=== PATIENT | female | born 1985 | race Caucasian/White ===

== ENCOUNTER 2016-04-08 09:12 | Outpatient (CLI) | payer OTHER | END 2016-04-08 09:13 | disposition home or self-care (01) | DX: Z36 Encounter for antenatal screening of mother (principal) ==

== ENCOUNTER 2016-06-06 14:20 | Outpatient (CLI) | payer OTHER | END 2016-06-06 14:21 | disposition home or self-care (01) | DX: Z36 Encounter for antenatal screening of mother (principal) ==

== ENCOUNTER 2016-07-06 07:29 | Outpatient (CLI) | payer OTHER | END 2016-07-06 07:30 | disposition home or self-care (01) | DX: Z36 Encounter for antenatal screening of mother (principal) ==

== ENCOUNTER 2016-08-16 09:20 | Outpatient (CLI) | payer OTHER | END 2016-08-16 09:21 | disposition home or self-care (01) | DX: Z36 Encounter for antenatal screening of mother (principal) ==

== ENCOUNTER 2016-09-23 08:00 | Outpatient (CLI) | payer OTHER | END 2016-09-23 08:01 | disposition home or self-care (01) | LOC: LAB.R 08:00 | PROVIDERS: ATTEND Obstetrics & Gynecology | DX: J02.9 Acute pharyngitis, unspecified (principal) | CPT/HCPCS: 87070 ==

== ENCOUNTER 2016-10-20 16:42 | Outpatient (CLI) | payer OTHER | END 2016-10-20 16:43 | disposition home or self-care (01) | LOC: LAB.R 16:42 | PROVIDERS: ATTEND Registered Nurse | DX: Z34.83 Encounter for supervision of other normal pregnancy, third trimester (principal) | CPT/HCPCS: 87081 ==

== ENCOUNTER 2016-10-31 17:17 | Outpatient (CLI) | payer OTHER ==
[2016-10-31 17:41] VITALS: BP 125/77
--- NOTE | 2016-10-31 18:38 | PROVIDER PROGRESS NOTE ---
Labor Progress Note - Uterine Monitoring Uterine Monitoring Mode: positive: External toco Contraction Frequency (min/apart): 2-8 Contraction Intensity: positive: Mild to moderate Uterine Resting Tone: positive: Soft - Monitoring Monitor Mode: positive: External ultrasound Heart Rate Baseline: 135 Heart Rate Variability: positive: Moderate (6-25 bmp) Accelerations: positive: Present, 15x15 Decelerations: positive: None Strip Review: positive: Category I - Labor Progress Note Labor Progress Note/Additional Text: Laverne presented w/ a complaint of decreased movement throughout the day. She also reported profound & constant lower abdominal pain. She was evaluated @ [facility] & her baby had begun moving more vigorously w/ her in the supine position. Her discomfort was also resolved in the supine position. She reported she had been sitting for most of the day at her desk & that the discomfort started around 12N. She is also nervous because she was measuring S< D @ her last visit & has yet to be scheduled for her VIVIANA. Physical exam: AAOx3, NAD WA anxious gravid female HEENT: normocephalic, atraumatic Chest: breathing unlabored Abd: gravid, tender w/ palpation across round and broad ligaments, palpable movement, fetus cephalic; Bedside BAYLEE reveals AFV 13.78cm, + movement, MVP >2cm. NST: BL 135bpm, + accels, no decels, mod variability, reactive & CAT I TOCO: UCs q2-8 min, palp mild to moderate SVE deferred per pt request Skin: clean, dry, intact, no lesion Neuro: no focal deficit Extremities: no edema, FROM t/o, neg River's Psych: anxious, normal affect A: decreased movement w/ reassuring well-being by surveillance: NST reactive, AFV WNL, movement resumed Maternal abdominal pain, improved w/ supine positioning P: 1. Reviewed body mechanics in late & encouraged pt to sit in different positions & to vary sitting/standing/walking more regularly 2. Encouraged warm bath/rest/increased hydration 3. Reviewed warning s/sx, labor s/sx, FKC 4. Will contact radiology to attempt to expedite scheduling of VIVIANA, pt reassured by today's AFV findings 5. Return visit scheduled for 11/03/2016; pt has emergency contact information & will call w/ resumption or worsening of symptoms
== END 2016-10-31 18:30 | disposition home or self-care (01) ==
LOC: WFO 17:17 → FBP 17:18 → WFO 18:30
PROVIDERS: ATTEND Registered Nurse
DX: O36.8130 Decreased fetal movements, third trimester, not applicable or unspecified (principal); Z3A.38 38 weeks gestation of pregnancy
CPT/HCPCS: 59025

== ENCOUNTER 2016-11-03 18:58 | Outpatient (CLI) | payer OTHER ==
--- NOTE | 2016-11-04 00:05 | Ultrasound Preliminary Report ---
Exam: US OB F/U or Repeat IMPRESSION: Unremarkable fetus at 35 weeks 4 days by current measurements, concordant with LMP measur ements, but discordant with first ultrasound measurements. [facility] SITE ID: [id number]
--- NOTE | 2016-11-04 00:07 | Ultrasound Report ---
EXAM: COMPLETE OBSTETRICAL ULTRASOUND EXAM DATE: 11/03/2016 07:34 PM. CLINICAL HISTORY: Small for dates. COMPARISON: 07/06/2016. TECHNIQUE: Real-time sonographic evaluation of the fetus performed by the b2b managed service sales exec. Multiple repre sentative static images were saved for review. DATING: Established EGA 38 weeks 2 days with CHANDRIKA 11/15/2016 based on the first ultrasound. EGA 35 weeks 1 day with CHANDRIKA 12/01/2016 based on LMP. EGA 35 weeks 4 days with CHANDRIKA 12/04/2016 based on the current ultrasound. GENERAL EVALUATION Oliveira . Cardiac activity: 132 bpm. movement: Visualized. Presentation: Cephalic. Placenta: Anterior position. No evidence for previa. Amniotic fluid: BAYLEE 8.9 MVP 4.8 cm. BIOMETRY Bi-Parietal Diameter (BPD): 8.63 cm, 34 weeks 6 days Head Circumference (HC): 32.24 cm, 36 weeks 3 days Abdominal Circumference (AC): 30.71 cm, 34 weeks 5 days Femur Length (FL): 6.99 cm, 35 weeks 6 days Estimated Weight: 2617 gm, 7.6th percentile for 38 weeks 2 days. ANATOMIC SURVEY NOT PERFORMED AT THIS TIME. UNREMARKABLE VISUALIZED ANATOMY. MATERNAL STRUCTURES Uterus: Unremarkable. Cervix: Long and closed. Transabdominal length 3.1 cm. Right ovary/adnexa: Not visualized. Left ovary/adnexa: Not visualized. Free fluid: None. IMPRESSION: Unremarkable fetus at 35 weeks 4 days by current measurements, concordant with LMP measur ements, but discordant with first ultrasound measurements. [facility] Referring Provider Line: [phone] SITE ID: [id number]
== END 2016-11-03 18:59 | disposition home or self-care (01) ==
LOC: DI 18:58
PROVIDERS: ATTEND Registered Nurse
DX: O26.843 Uterine size-date discrepancy, third trimester (principal)
CPT/HCPCS: 76816

== ENCOUNTER 2016-11-04 16:03 | Inpatient (IN) | payer OTHER ==
[2016-11-04] MEDS ORDERED: SODIUM CHLORIDE FLUSH 0.9% 10 ML SYRINGE IVP ONE (17:24)
[2016-11-04] MEDS ORDERED: SODIUM CHLORIDE FLUSH 0.9% 10 ML SYRINGE IVP PRN (18:03)
[2016-11-04] MEDS ORDERED: fentaNYL 100 MCG/2 ML VIAL IVP PRN (18:03)
[2016-11-04] MEDS ORDERED: ACETAMINOPHEN 325 MG TABLET PO PRN (18:03)
[2016-11-04] MEDS ORDERED: DINOPROSTONE 10 MG SUPP VG ONE (18:03)
[2016-11-04] MEDS ORDERED: ONDANSETRON 4 MG/2 ML VIAL IVP PRN (18:03)
--- NOTE | 2016-11-04 19:32 | HISTORY & PHYSICAL EXAMINATION ---
Admit History - Instructions [place]/Slash: -Left hand click circles element as positive or present. -Right hand click slashes element as negative or not present. - Visit Reason Visit Reason: Other (IOL for IUGR: EFW 7.5%ile) - : 2 Parity: 0 Premature: 0 Ectopic: 0 : 0 Care: positive: [facility] Complications This : positive: Other (IUGR) Smoking Status: Never smoker - Mother's Labs Mother's Blood Type: positive: O Mother's RH: positive: Positive GBS: positive: Group B Step Negative Rubella Status: positive: Immune Meds/Allgy - Home Medications Home Medications: Ambulatory Orders Medication Instructions Recorded Confirmed Pnv No.121/Iron/Folic Acid 1 each PO DAILY 10/31/16 10/31/16 [ Multivitamin Tablet] - Allergies Allergies/Adverse Reactions: Allergies Allergy/AdvReac Type Severity Reaction Status Date / Time No Known Drug Allergies Allergy Verified 07/29/14 07:04 Physical - Abdominal Exam Vital Signs: Temp Pulse Resp BP Pulse Ox 36.9 C 73 17 128/68 100 11/04/16 17:01 11/04/16 17:01 11/04/16 17:01 11/04/16 17:01 11/04/16 17:01 Contraction Frequency (min/apart): 9-11 Contraction Intensity: positive: Mild Uterine Resting Tone: positive: Soft - Monitoring Heart Rate Baseline: 140 Strip Review: positive: Category I - Presentation Presentation: positive: Vertex - Vaginal Exam Membranes: positive: Membranes intact Dilation (in cm): 2 Effacement (%): 80 Station: positive: -2 Cervical Position: positive: Midposition - Speculum Exam Speculum Exam Performed: positive: Yes - Other Notes Labor Progress Note/Additional Text: Laverne is a 31 y/o @ 38w5d who presented for care in the 1st trimester & was dated by a 1st trimester US. With the exception of LSIL pap w2/ +HRHPV findings w/ colposcopy revealing "mild dysplasia," she had an essentially unremarkable until the late 3rd trimester, when she was found to be size less than dates. A VIVIANA was obtained & the EFW was 7.5%ile, consistent w/ a dx of IUGR. AFV was WNL. Given the dx of IUGR @ term, I recommended IOL & explained the implications of IUGR for the fetus & the pathophysiology of IUGR. We discussed IOL @ length & reviewed the IOL process & possible courses of action. Full, extensive PARQ held w/ pt & her partner & informed consent obtained, pt elected preinduction cervical ripening w/ Nadeem catheter. Laverne's medical history is notable for LSIL pap w/ +HRHPV, spontaneous ab x1 w/ o complication. She is otherwise healthy w/o medical problems & she has had no prior surgeries or hospitalizations. 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 She denies ETOH/drugs/tobacco. She is a strict vegan. She is to Venkata, who is involved & very supportive. Laverne's laboratory results during were unremarkable. She is Rh +, Rubella immune, GBS negative. Laverne takes a vitamin daily & no other medications. She presented for IOL w/o complaint, except that she had been hoping not to be induced. She desired a low intervention, unmedicated experience & is disappointed regarding the recommendation for IOL, although she agrees that it is in her best interest. She articulates a desire to still attempt an unmedicated delivery. We reviewed at length her risk profile, indications for induction & my recommendation for management, including patient, persistent preinduction cervical ripening & CEFM. O: AAOx3, tearful, gravid female HEENT: grossly normocephalic, atraumatic, PERRLA Lungs: CTA b/t t/o Heart: RRR nl s1s2, no murmur Abd: gravid, NT, FH 35cm, EFW 5-5.5#, longitudinal lie, cephalic presentation EFM: BL 140bpm + accels, no decels, mod variability TOCO: UCs q9-11min, palp mod SVE: 2/80/-2, IBOW, midposition, medium consistency, Rosas's score: 7 Extremities: FROM, well-perfused, warm, no edema, no erythema Neuro: no focal deficit Skin: clean, dry, intact, no lesion Psych: tearful, anxious Using a speculum, a Nadeem catheter was inserted sterilely w/ the assistance of a stylet w/ ease through the cervical os & the intrauterine balloon was easily inflated w/ 60mL sterile NS; the vaginal balloon was inflated w/ 40mL sterile NS. Speculum was removed. Traction was applied to the distal portion of the catheter & the catheter was taped to the medial L thigh. Pt doc well. A: 31 y/o @38w5d, IOL for IUGR Preinduction cervical ripening w/ transcervical balloon, placed w/ ease GBS negative, IBOW FHTs cat I Occasional uterine contractions Adequate pain control w/o analgesia/anesthesia Plan for Labor - Plan For Labor Plan for Labor: 1. Admit to [facility] as inpatient 2. CBC/BB hold 3. Extensive review of IOL process & preinduction cervical ripening 4. Extensive review of pathophysiology of IUGR; Dr. Leander MD to review implications for 5. Pt declines sleep aid, IV access secured 6. CEFM, reviewed rationale & importance of ongoing monitoring in the setting of likely uteroplacental insufficiency 7. Encouraged maternal rest/distraction 8. Will reassess cervical status w/ expulsion of the balloon or in the morning, earlier PRN 9. Reviewed plan of care extensively w/ pt, partner & RN @ bedside; all in agreement, without concerns; Dr. Patrick, DO, aware of current plan of care & concurs
[2016-11-04] MEDS: SODIUM CHLORIDE FLUSH 0.9% 10 ML SYRINGE IVP SCH (22:34)
[2016-11-04 23:11] LABS: BASOPHILS # (AUTO) 0.1 10^3/uL (0.0-0.1); BASOPHILS % (AUTO) 0.6 %; EOSINOPHILS % (AUTO) 0.5 %; HCT - HEMATOCRIT 34.5 % (37.0-47.0); HGB - HEMOGLOBIN 11.8 g/dL (12.0-16.0); LYMPHOCYTES # (AUTO) 2.6 10^3/uL (1.5-3.5); LYMPHOCYTES % (AUTO) 25.8 %; MEAN CORPUSCULAR HEMOGLOBIN 31.4 pg (27.0-31.0); MEAN CORPUSCULAR HGB CONC 34.1 g/dL (32.0-36.0); MEAN CORPUSCULAR VOLUME 91.9 fL (81.0-99.0); MEAN PLATELET VOLUME 10.6 fL (7.9-10.8); MONOCYTES # (AUTO) 0.8 10^3/uL (0.0-1.0); MONOCYTES % (AUTO) 8.3 %; NEUTROPHILS # (AUTO) 6.5 10^3/uL (1.5-6.6); NEUTROPHILS % (AUTO) 64.8 %; RED BLOOD COUNT 3.75 10^6/uL (4.20-5.40); RED CELL DISTRIBUTION WIDTH 13.5 % (12.0-15.0)
[2016-11-05] MEDS: SODIUM CHLORIDE FLUSH 0.9% 10 ML SYRINGE IVP SCH ×3 (06:49→18:49)
[2016-11-05] MEDS: LACTATED RINGERS 1,000 ML IV SCH ×3 (08:47→22:27)
--- NOTE | 2016-11-05 09:34 | PROVIDER PROGRESS NOTE ---
Labor Progress Note - Uterine Monitoring Contraction Frequency (min/apart): 2-5 Contraction Intensity: positive: Moderate Uterine Resting Tone: positive: Soft - Monitoring Monitor Mode: positive: External ultrasound Heart Rate Baseline: 150 Heart Rate Variability: positive: Moderate (6-25 bmp) Accelerations: positive: Present, 15x15 Decelerations: positive: None Strip Review: positive: Category I - Vaginal Exam Dilation (in cm): 6 Effacement (%): 80 Station: -2 Cervical Position: Midposition - Labor Progress Note Labor Progress Note/Additional Text: S: Laverne reports she is having strong but manageable uterine contractions. She has had multiple soft bowel movements this morning. She reports that the contractions are quite uncomfortable, but she reports she is able to breathe through them without distress. She states that she was able to sleep 5 uninterrupted hours last night between bouts of more intense contractions & she tugged on the distal end of her Nadeem catheter this morning when using the restroom @ 0600 & found that it had expelled. She experienced a moderate amount of bloody show w/ the expulsion. She is hoping to minimize the extent of intervention for her induction of labor & is hoping to minimize the use of Pitocin. She still desires unmedicated, low-intervention delivery, as much as we are able to preserve that experience for her, given her clinical scenario. Her partner, Venkata, is present @ the bedside & is supportive. O: VS: T: 98.2 HR:75 RR:18 BP:137/61 AAOx3, NAD WA gravid female Breathing unlabored EFM: BL 150bpm, + accels, no decels, mod variability TOCO: UCs q2-5 min x70-90 sec, palp mod SVE: 6/80/-2 mid position, soft consistency, BBOW w/ contraction & descent to -1 station A: 31 y/o @ 38w6d, induction of labor for IUGR w/ EFW 7.5%ile S/p effective mechanical cervical ripening Spontaneous uterine contractions FHTs cat I GBS neg w/ IBOW Adequate pain control w/o analgesia/anesthesia, good partner support P: 1. Reviewed clinical scenario & options for management of IOL from this point forward, including expectant management, nipple stimulation, Pitocin infusion, AROM, reviewed risks/benefits/mechanism of action for each. 2. Pt desires to attempt nipple stimulation over the course of 2 hours & have cervical re-evaluation @ that time to assess for progress; if no progress, will desire Pitocin infusion; would like to avoid AROM @ this time 3. Encouraged ambulation, frequent position change, upright postures 4. Double electric breast pump to BS for intermittent pumping for nipple stimulation to increase endogenous oxytocin release, reviewed regimen & process 5. Reassess cervical status x2 hours, earlier PRN 6. Ongoing monitoring of well-being 7. Reviewed plan of care w/ pt, partner & RN @ bedside; all in support w/o questions/concerns; Dr. Patrick, DO updated as to pt clinical status
--- NOTE | 2016-11-05 12:39 | PROVIDER PROGRESS NOTE ---
Labor Progress Note - Uterine Monitoring Uterine Monitoring Mode: positive: External toco Contraction Frequency (min/apart): 2-4 Contraction Intensity: positive: Moderate Uterine Resting Tone: positive: Soft - Monitoring Monitor Mode: positive: External ultrasound Heart Rate Baseline: 150 Heart Rate Variability: positive: Moderate (6-25 bmp) Accelerations: positive: Present, 15x15 Decelerations: positive: None Strip Review: positive: Category I - Vaginal Exam Dilation (in cm): 7 Effacement (%): 80 Station: -2 (BBOW) Cervical Position: Midposition - Labor Progress Note Labor Progress Note/Additional Text: S: Laverne is coping well w/ her discomfort. Breathing through contractions. Pumped some & it did intensify the contractions. Hoping to stave off additional interventions if she is making consistent cervical change. Does not desire analgesia/anesthesia @ this time. Partner, Venkata, present @ the bedside, referencing their [employer] text. O: VS: T: 98.2 HR:75 RR:18 BP:137/61 AAOx3, NAD WA gravid female EFM: BL 150bpm + accels, no decels, moderate variability TOCO: UCs q2-4 min x60-80 sec, palp moderate SVE: 7/80/-2 midposition, soft, BBOW A: 31 y/o @ 38w6d IOL for IUGR, EFW 7.5% s/p effective mechanical cervical ripening spontaneously hiro w/ progressive cervical change GBS neg w/ IBOW Adequate pain control w/o analgesia/anesthesia P: 1. Reviewed labor physiology & options for management @ this time. Pt declines AROM, does not desire Pitocin infusion unless not making cervical change 2. Reviewed optimal maternal positioning, encouraged ambulation 3. Reviewed all options for pain management & pt would like to ambulate & continue w/ her breathing techniques; excellent partner support 4. Reassess cervical status x2-4 hours, earlier PRN 5. Reviewed plan of care w/ pt, partner, RN @ bedside; all in agreement, without concerns; Dr. Patrick, , updated re: pt clinical status & concurs w/ plan of care
[2016-11-05] MEDS ORDERED: SODIUM CHLORIDE FLUSH 0.9% 10 ML SYRINGE IVP PRN (13:38)
--- NOTE | 2016-11-05 17:01 | PROVIDER PROGRESS NOTE ---
Labor Progress Note - Uterine Monitoring Uterine Monitoring Mode: positive: External toco Contraction Frequency (min/apart): 2-6 Contraction Intensity: positive: Moderate Uterine Resting Tone: positive: Soft - Monitoring Monitor Mode: positive: External ultrasound Heart Rate Variability: positive: Moderate (6-25 bmp) Accelerations: positive: Present, 15x15 Decelerations: positive: None Strip Review: positive: Category I - Vaginal Exam Dilation (in cm): 7-8 Effacement (%): 80 Station: -2 Cervical Position: Midposition - Labor Progress Note Labor Progress Note/Additional Text: S: Laverne reports that her contractions are getting progressively intense & that she is feeling shaky & having to breathe more through the contractions. She reports slight bloody show. She would like to get into the tub. Partner present at the bedside & supportive. 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 Reviewed clinical scenario w/ pt & partner, who decline AROM @ this time 2. Pt requests hydrotherapy & reassessment after to ensure no further cervical change; feels contractions are much more intense than previously 3. Will reassess cervical status x1-2 hours, earlier PRN 4. Pt to jacuzzi tub for pain management 5. Reviewed plan of care w/ pt, partner, RN @ bedside; all in agreement, without concerns. Dr. Darnell DO, updated as to pt clinical status.
[2016-11-05] MEDS ORDERED: OXYTOCIN/SODIUM CHLORIDE 250 ML IV ONE (17:49)
--- NOTE | 2016-11-05 19:39 | PROVIDER PROGRESS NOTE ---
Labor Progress Note - Uterine Monitoring Uterine Monitoring Mode: positive: External toco Contraction Frequency (min/apart): 5-6 Contraction Intensity: positive: Moderate to strong Uterine Resting Tone: positive: Soft - Monitoring Monitor Mode: positive: External ultrasound Heart Rate Baseline: 150 Heart Rate Variability: positive: Moderate (6-25 bmp) Accelerations: positive: Present, 15x15 Decelerations: positive: Early (w/ uterine contractions, recurrent, to dorian in 130s) Strip Review: positive: Category I - Vaginal Exam Dilation (in cm): 9 Effacement (%): 90 Station: 0 Cervical Position: Midposition - Labor Progress Note Labor Progress Note/Additional Text: S:Laverne is coping well with her uterine contractions. She is breathing through them and focusing. She reports increased vaginal pressure w/ the contractions. She is interested now in AROM as she has had slow cervical change throughout the day. Her partner, Venkata, is present @ the bedside & is very supportive. O: AAOx3, NAD, discomfort w/ uterine contractions, coping very well, gravid female VSS EFM: BL 150bpm, + accels, early decels to dorian in 130s TOCO: UCs q5-6 minutes, x60-80 seconds, palpably moderate to strong SVE: 9/90/0 s/p AROM for small amt CAF A: 31 y/o @ 38w6d, IOL for IUGR, EFW 7.5%ile s/p effective mechanical cervical ripening Slow cervical tire changer the course of the day GBS neg, AROM for CAF FHTs cat I Adequate pain control w/o analgesia/anesthesia P: 1. Reviewed clinical scenario & anticipatory guidance for transition & 2nd stage, reviewed AMTSL, pt amenable, will plan Pitocin in IVFs w/ delivery of anterior shoulder 2. Reviewed optimal maternal positioning to facilitate descent 3. Reassess cervical status w/ maternal urge to push 4. Reviewed plan of care w/ pt, partner & RN @ bedside; Dr. Patrick, DO, updated as to clinical status.
[2016-11-05] MEDS ORDERED: LIDOCAINE 1% 50 ML MDV ONE (19:41)
[2016-11-05] MEDS ORDERED: MINERAL OIL LIGHT 10 ML MC ONE (19:41)
[2016-11-05] MEDS ORDERED: OXYTOCIN 10 UNIT/ML VIAL ONE (19:42)
[2016-11-05] MEDS ORDERED: TERBUTALINE 1 MG/ML VIAL SUBQ ONE (22:24)
--- NOTE | 2016-11-05 22:39 | PROVIDER PROGRESS NOTE ---
Labor Progress Note - Uterine Monitoring Uterine Monitoring Mode: positive: External toco Contraction Frequency (min/apart): Q4-5 Contraction Intensity: positive: Moderate to strong - Monitoring Monitor Mode: positive: External ultrasound Heart Rate Variability: positive: Moderate (6-25 bmp) Accelerations: positive: Present, 15x15 Decelerations: positive: Late (FHT's to the 50's with recovery in 2 minutes) Strip Review: positive: Category II - Vaginal Exam Dilation (in cm): 7 Effacement (%): 70 Station: -2 Cervical Position: Posterior - Labor Progress Note Labor Progress Note/Additional Text: 31 yo witha 38w5d IUP Induction for IUGR in 7%centile Called by Paulo Caceres GAS TESTER for late decelerations. Decel from baseline of 130's down to 40's with recovery in 2 minutes. Patient's head down ( was on hands and feet), O2 given. Patient spontaneously hiro. Terbutaline given SQ. FHT's recovered. D/W patient baby not tolerating combination of contractions and her bearing down. Recommend epidural so she may relax and uterus to work without her help. Patient agrees. Did stress to the patient that our goal is to have a healthy mom and baby. If baby does not tolerate labor, may have to proceed to a delivery. With an epidural in place, this may help to proceed to a delivery if necessary since anesthesia has been established. Pitocin PRN Close monitoring of FHT's Labs, EKG, Meds, Allergy - Lab Results Fish Bones: 11/04/16 22:20 Other Lab Results: Lab Results x24hrs 11/04/16 Range/Units 22:20 WBC 10.0 (4.8-10.8) x10^3/uL RBC 3.75 L (4.20-5.40) 10^6/uL Hgb 11.8 L (12.0-16.0) g/dL Hct 34.5 L (37.0-47.0) % MCV 91.9 (81.0-99.0) fL MCH 31.4 H (27.0-31.0) pg MCHC 34.1 (32.0-36.0) g/dL RDW 13.5 (12.0-15.0) % Plt Count 200 (130-450) 10^3/uL MPV 10.6 (7.9-10.8) fL Neut # 6.5 (1.5-6.6) 10^3/uL Lymph # 2.6 (1.5-3.5) 10^3/uL [place] # 0.8 (0.0-1.0) 10^3/uL Eos # 0.0 (0.0-0.7) 10^3/uL Baso # 0.1 (0.0-0.1) 10^3/uL Absolute Nucleated RBC 0.00 x10^3/uL Nucleated RBC % 0.0 /100WBC - Medications Medications: Ambulatory Orders Medication Instructions Recorded Confirmed Pnv No.121/Iron/Folic Acid 1 each PO DAILY 10/31/16 10/31/16 [ Multivitamin Tablet] - Allergy Allergy: Allergies Allergy/AdvReac Type Severity Reaction Status Date / Time No Known Drug Allergies Allergy Verified 07/29/14 07:04 Pnv No.121/Iron/Folic Acid [ Multivitamin Tablet] 1 each PO DAILY
[2016-11-05] MEDS ORDERED: LIDOCAINE 1%-EPI 1:100000 20 ML MDV SUBQ ONE (22:45)
[2016-11-05] MEDS ORDERED: ONDANSETRON 4 MG/2 ML VIAL IVP ONE (22:45)
[2016-11-05] MEDS ORDERED: OXYTOCIN 10 UNIT/ML VIAL IV ONE (22:45)
[2016-11-05] MEDS ORDERED: BUPIVACAINE 0.5% PF 10 ML VIAL IM ONE (22:45)
[2016-11-05] MEDS ORDERED: ePHEDrine 50 MG/ML VIAL IVP ONE (22:45)
[2016-11-05] MEDS ORDERED: MORPHINE PF 5 MG/10 ML AMP EP ONE (22:45)
[2016-11-05] MEDS ORDERED: fent/BUPIV 2 MCG/0.125% 250 ML EP ONE (22:46)
[2016-11-05] MEDS ORDERED: NALOXONE 0.4 MG/ML VIAL IVP PRN (23:19)
[2016-11-05] MEDS ORDERED: ONDANSETRON 4 MG/2 ML VIAL IVP PRN (23:19)
[2016-11-05] MEDS ORDERED: LACTATED RINGERS 500 ML IV ONE (23:19)
[2016-11-05] MEDS ORDERED: diphenhydrAMINE INJ 50 MG/ML VIAL IVP PRN (23:19)
[2016-11-05] MEDS ORDERED: ePHEDrine 50 MG/ML VIAL IVP PRN (23:19)
[2016-11-05] MEDS ORDERED: fent/BUPIV 2 MCG/0.125% 250 ML EP PRN (23:19)
[2016-11-05] MEDS ORDERED: METOCLOPRAMIDE 10 MG/2 ML VIAL IVP PRN (23:19)
[2016-11-05] MEDS ORDERED: NALBUPHINE 20 MG/ML AMP IVP PRN (23:19)
[2016-11-05] MEDS: TERBUTALINE 1 MG/ML VIAL SUBQ ONE (23:33)
[2016-11-05] MEDS ORDERED: ceFAZolin 2 GM in SODIUM CHLORIDE 0.9% MINIBAG 100 ML IV SCH (23:45)
[2016-11-05] MEDS ORDERED: CITRIC ACID/SODIUM CITRATE 15 ML UDC PO ONE (23:55)
[2016-11-06] MEDS ORDERED: ceFAZolin 2 GM/50 ML 2 GM/50 ML BAG IV ONE (00:02)
--- NOTE | 2016-11-06 00:02 | PROVIDER PROGRESS NOTE ---
Labor Progress Note - Uterine Monitoring Uterine Monitoring Mode: positive: External toco Contraction Intensity: positive: Moderate to strong Uterine Resting Tone: positive: Soft - Monitoring Monitor Mode: positive: External ultrasound Heart Rate Variability: positive: Moderate (6-25 bmp) Accelerations: positive: Present, 15x15, Absent Strip Review: positive: Category I - Vaginal Exam Dilation (in cm): 7 Effacement (%): 70 Station: -2 Cervical Position: Posterior - Labor Progress Note Labor Progress Note/Additional Text: 31 yo with a 38w5d IUP Epidural in place by Arcadio Major CRNA Patient has called me to bedside to discuss current situation. Patient exhausted and "want to be done." Discussed with the patient that we may proceed to a primary delivery if she desires. We may, however, proceed to a vaginal trial of labor since both she and the baby look reassuring at this time. A vaginal trial of labor does not guarantee a vaginal delivery. We may still have to proceed to a delivery if the baby does not tolerate labor , or if the baby does not descend. Discussed with the patient the risks, benefits, alternatives, indications and expectations of a delivery. Included in our discussion were the risks of hemorrhage, infection and damage to surrounding organs (eg an inadvertent laceration, ligation or cauterization of the adjacent organs). After all of ther questions were answered to her satisfaction, the patient verbalizes her consent to proceed to a delivery. Will proceed. Consents signed.
[2016-11-06] MEDS: LACTATED RINGERS 1,000 ML IV SCH (00:09)
--- NOTE | 2016-11-06 00:27 | PROVIDER PROGRESS NOTE ---
Labor Progress Note - Uterine Monitoring Contraction Frequency (min/apart): 4-6 Contraction Intensity: positive: Moderate Uterine Resting Tone: positive: Soft - Monitoring Monitor Mode: positive: External ultrasound Heart Rate Baseline: 150 Heart Rate Variability: positive: Moderate (6-25 bmp) Accelerations: positive: Present, 15x15 Decelerations: positive: Late Strip Review: positive: Category II - Vaginal Exam Dilation (in cm): 9 Effacement (%): 80 Station: -1 Cervical Position: Midposition - Labor Progress Note Labor Progress Note/Additional Text: S: Pt w/ urge to bear down, seated wide-legged, clenching sides of stool. Distressed w/ uterine contractions, some involuntary bearing down. 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 Darnell DO, called to bedside for evaluation & recommendations for management FSE applied Reviewed clinical scenario & implications w/ pt & partner O2, LR bolus, maternal Hands & knees positioning terbutaline 0.25mg SQ x1 administered
[2016-11-06] MEDS ORDERED: LACTATED RINGERS 300 ML IV ONE (00:35)
[2016-11-06] MEDS ORDERED: LACTATED RINGERS 1,000 ML IV ONE (01:12)
[2016-11-06] MEDS ORDERED: MEPERIDINE 50 MG/ML SYRINGE ONE (02:11)
--- NOTE | 2016-11-06 02:36 | OPERATIVE REPORT ---
Operative Report - General Admit Date: 11/05/16 - Other Other Information/Narrative: Date of Operation: 11/06/2016 Surgeon: Debra Patrick DO FACOG Karate Black Belt: Paulo Caceres CNM REPRODUCTION SPECIALIST Assembly Supervisor: Arcadio Major CRNA Anesthesia: 1. Epidural 2. Spinal Pre-op Dx: 1. 31 yo with a 38w5d IUP 2. IUGR 3. NRFHT's 4. Failure to dilate and descend Post-op Dx: 1. 31 yo with a 38w5d IUP 2. IUGR 3. NRFHT's 4. Failure to dilate and descend Procedure: Primary delivery Findings: Viable female fetus in VTX presentation, LOP. "Iesha" with Apgars 9/ 10, weight 6 lbs 6.8 oz. Normal ovaries, fallopian tubes and uterus. Specimens: 1. Cord blood 2. Placenta to pathology Drains: 1. Perry catheter to gravity 2. Prevena wound vac EBL: 800 mL Complications: None 31 yo with a 38w6d IUP presents to L&D for an induction of labor. Recent U/S showed IUGR with baby in 7%centile. No oligohydramnios. Patient induced with a perry bulb and spontaneously dilated to 7 cm. No progress beyond 7 cm/70/-2 with late decel to 40's. Patient underwent a primary delivery and had a viable female fetus named Iesha. Weight 6 lbs 6.8 oz. Apgars 9/10. EBL 800 mL. No complications. Prevena wound vac used. Dictation #[id number]:
[2016-11-06] MEDS ORDERED: OXYTOCIN/SODIUM CHLORIDE 250 ML IV ONE (02:45)
[2016-11-06] MEDS ORDERED: MAGNESIUM HYDROXIDE 2,400 MG/30 ML UDC PO PRN (02:45)
--- NOTE | 2016-11-06 04:36 | OPERATIVE REPORT ---
DATE OF SURGERY: 11/06/2006 00:00:00 PREOPERATIVE DIAGNOSIS: 1. A 31-year-old G2, P0-0-1-0 with 30 and 5/7 week intrauterine . 2. Intrauterine growth restriction. 3. Nonreassuring heart tones. 4. Failure to dilate and descend. POSTOPERATIVE DIAGNOSIS: 1. A 31-year-old G2, P0-0-1-0 with 30 and 5/7 week intrauterine . 2. Intrauterine growth restriction. 3. Nonreassuring heart tones. 4. Failure to dilate and descend. NAME OF PROCEDURE: Primary delivery. SURGEON: Debra Patrick MD FACOG. AIRLINE PILOT: Arcadio Li CRNA DIRECTOR OF VOCATIONAL GUIDANCE: ASHELY Bradshaw CNM. ANESTHESIA: 1. Epidural. 2. Spinal. FINDINGS: A viable female infant in vertex presentation LOP. This baby is named Iesha with Apgars 9 and 10 at one and 5 minutes, respectively. She weighed 6 pounds 6.8 ounces. Normal ovaries, fallopian tubes, and uterus. SPECIMENS: 1. Cord blood. 2. Placenta to pathology. DRAINS: 1. Thornton catheter to [place]. 2. Prevena wound VAC. ESTIMATED BLOOD LOSS: 800 mL. COMPLICATIONS: None. BRIEF HISTORY: The patient is a patient of [facility]. The patient in the last 2-3 weeks has been measuring size less than dates. A recent ultrasound revealed that the patient was IUGR measuring the 7th percentile. The patient was admitted to the hospital and induced with a Thornton bulb catheter. From the mechanical induction she spontaneously progressed to active labor. The patient had a significant decelerations to 40s from her baseline in the 140s to 150s. The baby recovered with 2 minutes of the deceleration. The patient only progressed to a maximum of 7 cm, 70% effacement and -2 station. Given this clinical situation in the face of IUGR the patient was recommended to undergo a primary delivery. I discussed with the patient the risks, benefits, alternatives, indications and expectations of a primary delivery. Included in our discussion were the risk of hemorrhage, infection, and damage to surrounding organs. With respect to damage to surrounding organs, , this may be an inadvertent laceration, cauterization or ligation of adjacent intestines, ureters and bladder. The patient would be a good candidate for vaginal after delivery given the main concern for delivery with nonreassuring heart tones. After all of the patient's questions were answered to her satisfaction, she verbalized her desire to proceed with surgery. Consent forms have been signed. OPERATION IN DETAIL: The patient was identified, consented, and taken to the operating room where IV and epidural accesses were already in place. A Thornton catheter was placed in her bladder. The patient still felt pain despite the epidural bolus. She then received a spinal for pain control. This was found to be satisfactory for her surgery. The patient was then prepped and draped in normal sterile fashion in dorsal supine position with a leftward tilt. Two grams of Ancef were given through her IV prior to the start of the incision. Skin testing revealed that the anesthesia was working satisfactorily. A timeout was performed, which correctly identified the patient, site of the procedure and the procedure itself. A Pfannenstiel skin incision was made approximately 2 fingerbreadths above the level of the pubic symphysis. This was carried through the underlining layer of fascia with electrocautery. Fascia was then nicked in midline and extended laterally. Fascia was then dissected off the rectus muscles. The rectus muscles were then bluntly in midline and the peritoneum entered bluntly as well. Bladder flap was then created by dissecting out the vesicouterineperitoneum. Hysterotomy was made in lower uterine segment in transverse fashion. Amniotomy revealed clear fluid. With the help of fundal pressure, the infant's head delivered easily and without difficulty. The nose and mouth were suctioned with the bulb syringe. Again, with the help of fundal pressure, the rest of the infant delivered easily and without difficulty. The umbilical cord was doubly clamped and cut and handed off to Dr. Tabor the on-call scraper loader operator. Cord blood was then obtained. The uterus was then internally massaged and placenta delivered manually. The uterus was then delivered out of the abdomen and cleared of all clots and debris. The hysterotomy was then repaired with 2 sutures of 0 Vicryl, first in a running and locked fashion and next in an imbricating fashion using the Lembert stitch. Hemostasis was noted. There was small hematoma on the right corner of the hysterotomy repair. This was found to be stable. The uterus was then returned to the abdomen and the abdomen was then copiously irrigated. Hemostasis was noted. Peritoneum was then closed with a running stitch of 2-0 Vicryl and the same stitch was used to reapproximate the rectus muscle and 0 Vicryl was used to reapproximate the fascia, 2-0 Vicryl interrupted stitches were used to reapproximate the Camper's fascia. The skin was finally closed with 4-0 Monocryl in a subcuticular fashion. Prevena wound VAC was placed on top of the incision and turned on. The patient tolerated the procedure well, was taken back to recovery room in stable and awake condition. She will be given routine care including round the clock Celebrex, oxycodone and Colace. All sponge, lap and needle counts were correct x2 as per nurse report. JOB #: [id number] EXT JOB #:[id number] MTDD
[2016-11-06] MEDS: ACETAMINOPHEN 500 MG TABLET PO SCH ×3 (06:05→15:45)
[2016-11-06] MEDS: TERBUTALINE 1 MG/ML VIAL SUBQ ONE (06:09)
[2016-11-06] MEDS: CELECOXIB 100 MG CAPSULE PO SCH ×2 (08:43→20:38)
[2016-11-06] MEDS: DOCUSATE SODIUM 100 MG CAPSULE PO SCH ×2 (08:44→20:38)
[2016-11-06] MEDS: SODIUM CHLORIDE FLUSH 0.9% 10 ML SYRINGE IVP SCH (08:44)
[2016-11-06] MEDS: oxyCODONE 5 MG TABLET PO PRN ×2 (11:01→20:39)
--- NOTE | 2016-11-06 11:11 | PROVIDER PROGRESS NOTE ---
Subjective - Prog Note Date Prog Note Date: 11/06/16 Prog Note Time: 11:06 - Subjective Pt reports feeling: Improved Subjective: Patient lying in bed. Has requested oxycodone now after previously declining it. Baby in bassinet and Venkata at bedside. Perry catheter in-situ and draining well. No nausea or vomiting. Tolerated liquid breakfast. Objective - Vital Signs/Intake & Output Reviewed Vital Signs: Yes Vital Signs: Vital Signs x48h Temp Pulse Resp BP Pulse Ox 11/06/16 09:31 14 11/06/16 08:00 98.2 F 56 L 16 115/55 L 98 Intake & Output: Intake & Output 11/03/16 11/04/16 11/05/16 11/06/16 23:59 23:59 23:59 23:59 Intake Total 1500 3347 Output Total 925 Balance 1500 2422 - Objective General Appearance: positive: No acute distress Abdomen: positive: Other (Prevena wound vac intact and working well) - Lab Results Fish Bones: 11/04/16 22:20 Assessment/Plan - Problem List (1) Delivered by section Impression: 31 yo S/p primary CD 11/06/2016 for nonreassuring heart tones and failure to dilate and descend. POD #1 Aggressive pain control. Remove perry catheter this evening. Saline lock IV.
[2016-11-06] MEDS: SIMETHICONE CHEW 80 MG TABLET PO SCH ×2 (13:13→18:39)
[2016-11-07] MEDS: ACETAMINOPHEN 500 MG TABLET PO SCH ×3 (00:42→17:17)
[2016-11-07] MEDS: oxyCODONE 5 MG TABLET PO PRN ×3 (02:40→15:19)
[2016-11-07] MEDS: DOCUSATE SODIUM 100 MG CAPSULE PO SCH ×2 (09:41→21:08)
[2016-11-07] MEDS: CELECOXIB 100 MG CAPSULE PO SCH ×2 (09:43→21:08)
[2016-11-07] MEDS: SIMETHICONE CHEW 80 MG TABLET PO SCH ×5 (09:43→21:08)
--- NOTE | 2016-11-07 09:45 | PROVIDER PROGRESS NOTE ---
Subjective - Prog Note Date Prog Note Date: 11/07/16 Prog Note Time: 09:28 - Subjective Pt reports feeling: Improved Subjective: This AM, was told by the nightshift OB RNs ([place]) that there was an event earlier today. The OB RN (Eliza) was outside of the patient room when they heard a scream. After the RN realized it was her patient that was screaming, the RN checked on the patient to see what has going on. The RN saw the patient holding the baby and shaking the baby. The patient was loudly asking the baby a rhetorical question to the effect of what did the baby need. The RN then took the baby so that the patient and her could get some sleep and to reevaluate for the baby's safety. I spoke to the patient and her , Venkata, who was present. Both appeared a little shaken by this morning's event. They realized that caring for a was much different than they had anticipated. Laverne stated that she would have to lower her expectations. Laverne told me that prior to the that she was seeing a therapist, Sonal Paredes in [place]. She saw Sonal on a monthly basis and felt she had a good relationship with Sonal. Laverne has not been seeing Laverne recently. Laverne was seeing Sonal for her depression. Laverne denies having had any pharmacotherapy in the past for psychiatric issues. Venkata was tearful and said that he had been on Celexa as a teenager. He did not like Celexa as if affected his libido. He did state that he is willing to seek therapy for both himself and Laverne. Venkata's parents will be here in about a week from [place] to help with the baby. Laverne' s mom is also expected to come visit after Venkata's parents leave. Medically, the patient is ambulating and tolerating a regular diet. She is urinating without difficulty. She has relented and has tried the oxycodone, but mentions it didn't help as much for pain. The vaginal bleeding is improving. She is latching well to the baby so far. Objective - Vital Signs/Intake & Output Reviewed Vital Signs: Yes Vital Signs: Vital Signs x48h Temp Pulse Resp BP Pulse Ox 11/07/16 08:00 98.2 F 60 18 117/68 100 Intake & Output: Intake & Output 09/29/17 09/30/17 10/01/17 10/02/17 23:59 23:59 23:59 23:59 Intake Total 1500 4037 800 Output Total 9261 1280 Balance 7581 -5255 -195 - Objective General Appearance: positive: No acute distress (Appears tired) Abdomen: positive: Non-tender (Wound vac in place and working well) Neurologic/Psychiatric: positive: Oriented x3, Mood/affect nml (Recognizes she herself is tired and having difficulty caring for the baby. Willing to accept help.) - Lab Results Fish Bones: 11/04/16 22:20 Assessment/Plan - Problem List (1) Delivered by section Impression: 31 yo S/p primary CD 11/06/2016 for NRFHT's and failure to dilate and descend Normal recovery from surgery. Anxiety and depression, recently exacerbated by lack of sleep. Patient and have recognized they need help and are willing to take it. Encouraged the patient to let them take the baby so that they can get some sleep. Will have nursing be more involved in helping the patient evaluate and care for the baby. Recommended that patient that either she or Venkata get adequate sleep. Will consult [employer]. D/W the patient that I recommend she sees her therapist, ideally one who is well trained with depression. D/W the patient we may start sertraline for depression as she is at increased risk. Effect of sertraline will not be seen for 4-6 weeks. Will keep the patient at least for 4 days to help with education.
[2016-11-07] MEDS: LACTATED RINGERS 1,000 ML IV SCH ×4 (11:48→18:48)
[2016-11-07] MEDS: SODIUM CHLORIDE FLUSH 0.9% 10 ML SYRINGE IVP SCH ×4 (11:48→17:26)
[2016-11-08] MEDS: ACETAMINOPHEN 500 MG TABLET PO SCH ×3 (01:14→17:21)
[2016-11-08] MEDS: SODIUM CHLORIDE FLUSH 0.9% 10 ML SYRINGE IVP SCH ×2 (01:15→06:54)
[2016-11-08] MEDS: LACTATED RINGERS 1,000 ML IV SCH (06:54)
[2016-11-08] MEDS: CELECOXIB 100 MG CAPSULE PO SCH ×2 (09:25→20:43)
[2016-11-08] MEDS: DOCUSATE SODIUM 100 MG CAPSULE PO SCH ×2 (09:26→20:43)
[2016-11-08] MEDS: SIMETHICONE CHEW 80 MG TABLET PO SCH ×4 (09:42→20:43)
--- NOTE | 2016-11-08 18:34 | PROVIDER PROGRESS NOTE ---
Subjective - Prog Note Date Prog Note Date: 11/08/16 Prog Note Time: 18:30 - Subjective Pt reports feeling: Improved Subjective: Patient sitting in bed eating dinner. Patient a vegan. at bedside. Baby in bassinet. States physically she is doing better. Ambulating, tolerating a regular diet. Pain in controlled with oral meds. Urinating without difficulty. Lochia normal. Getting in naps. Still having highs and lows. [place] a low today and now would like to try a SSRI. Feels doable to recover and have help here in the hospital. Wouldn't mind staying. Very worried about going home and not having the RNs here to help. Venkata has arranged for a night time online media director to help them until his mom arrives from [place] 11/12/2016. Current Medications - Current Medications Current Medications: Routine Celebrex, tylenol, colace, oxycodone. Objective - Vital Signs/Intake & Output Reviewed Vital Signs: Yes Vital Signs: Vital Signs x48h Temp Pulse Resp BP Pulse Ox 11/08/16 17:23 98.4 F 73 16 119/68 73 L Intake & Output: Intake & Output 11/05/16 11/06/16 11/07/16 11/08/16 23:59 23:59 23:59 23:59 Intake Total 1500 4037 800 Output Total 5350 2080 Balance 1500 -1313 -1280 - Objective General Appearance: positive: No acute distress Eyes Bilateral: positive: Normal inspection Abdomen: positive: Non-tender (Prevena wound vac in place and working well) Neurologic/Psychiatric: positive: Oriented x3 - Lab Results Fish Bones: 11/04/16 22:20 Assessment/Plan - Problem List (1) Delivered by section Impression: 31 yo S/p CD 11/06/2016, POD#2 Normal obstetrical recovery Saline lock IV Continue current care (2) depression Impression: Patient acknowledges depression Would like to start SSRI Will do a trial of sertraline 50 mg 1 tab po daily Consider keeping patient longer to make sure her transition home will be successful
[2016-11-08] MEDS: SERTRALINE 50 MG TABLET PO SCH (20:43)
[2016-11-09] MEDS: ACETAMINOPHEN 500 MG TABLET PO SCH ×3 (04:05→20:19)
[2016-11-09] MEDS: CELECOXIB 100 MG CAPSULE PO SCH ×2 (09:21→22:45)
[2016-11-09] MEDS: SIMETHICONE CHEW 80 MG TABLET PO SCH ×3 (09:21→20:20)
[2016-11-09] MEDS: SERTRALINE 50 MG TABLET PO SCH (09:22)
[2016-11-09] MEDS: DOCUSATE SODIUM 100 MG CAPSULE PO SCH ×2 (09:22→20:20)
--- NOTE | 2016-11-09 16:28 | PROVIDER PROGRESS NOTE ---
Subjective - Prog Note Date Prog Note Date: 11/09/16 Prog Note Time: 11:45 - Subjective Pt reports feeling: Improved Subjective: Patient sitting in bed, breast feeding the baby on the right side. Figured out that the baby disliked the left side due to residue from a nipple gel pad. Baby now latching well on the left side. Bleeding improving as well as pain. No longer taking oxycodone. Urinating and tolerating a regular diet. Ambulating well. Had a breakdown earlier this AM. Patient got the baby to latch and breast feed. However after she was able to get the baby to sleep and herself to sleep, the RN woke them up to breast feed. Laverne was very tearful. Taking sertraline and so far doing well on it. Current Medications - Current Medications Current Medications: Routine Celebrex, Tylenol and colace. Declining routine oxycodone. Objective - Vital Signs/Intake & Output Reviewed Vital Signs: Yes Intake & Output: Intake & Output 11/06/16 11/07/16 11/08/16 11/09/16 23:59 23:59 23:59 23:59 Intake Total 4037 800 Output Total 5350 2080 Balance -1313 -1280 - Objective General Appearance: positive: No acute distress Eyes Bilateral: positive: Normal inspection (Wears spectacles) Abdomen: positive: Non-tender (Wound vac in place and working well) Neurologic/Psychiatric: positive: Oriented x3, Mood/affect nml - Lab Results Fish Bones: 11/04/16 22:20 Assessment/Plan - Problem List (1) Delivered by section Impression: 31 yo S/p CD 11/06/2016, POD #3 today. Recovering nicely. Continue routine Celebrex, acetaminophen and colace. Oxycodone to PRN, not scheduled. Plan to remove Prevena wound vac 11/11/2016. (2) depression Impression: Significant depression with poor coping ability. (Patient was screaming and shaking the baby po PPD #1.) Started on sertraline 50 mg po daily. Will need 4-6 weeks for significant improvement. Baby down 11% from delivery weight. Will keep patient here until she is stable and coping skill better established. Have discussed with RNs that they will help the patient breast feed Q 2 hours, have patient and baby sleep, repeat. Scheduled feedings and naps should help. [id number] flying in from [place] 11/12/2016 to help with baby. Patient's mother expected to fly in to help after [id number] has departed. Plan to discharge patient to home 11/12/2016. Patient to see me weekly to evaluate state of depression. May have to increase sertraline after 1 week to 100 mg.
[2016-11-10] MEDS: SIMETHICONE CHEW 80 MG TABLET PO SCH ×4 (00:11→20:27)
[2016-11-10] MEDS: ACETAMINOPHEN 500 MG TABLET PO SCH ×3 (05:39→20:26)
[2016-11-10] MEDS: SERTRALINE 50 MG TABLET PO SCH (09:05)
[2016-11-10] MEDS: DOCUSATE SODIUM 100 MG CAPSULE PO SCH ×2 (09:05→20:27)
[2016-11-10] MEDS: CELECOXIB 100 MG CAPSULE PO SCH ×2 (09:05→20:27)
--- NOTE | 2016-11-10 09:39 | PROVIDER PROGRESS NOTE ---
Subjective - Prog Note Date Prog Note Date: 11/10/16 Prog Note Time: 09:36 - Subjective Pt reports feeling: Improved Subjective: Patient standing in the room, eating a banana and peanut butter. Venkata holding the baby who is sucking on a pacifier. Feeling more comfortable with breasting/ sleeping routine. Scant vaginal bleeding. Pain well controlled. Urinating without difficulty. Denies increased depressive or anxious symptoms on sertraline. OK with staying here until Monday. No recent crying outbreaks. Dr. Tabor has encouraged her to occasionally let the baby sleep for 3 consecutive hours and not wake her up every 2 hours. Objective - Vital Signs/Intake & Output Vital Signs: Vital Signs x48h Temp Pulse Resp BP Pulse Ox 11/10/16 05:32 98.3 F 59 L 16 124/66 98 11/10/16 04:00 98.8 F 58 L 18 111/74 99 Intake & Output: Intake & Output 11/07/16 11/08/16 11/09/16 11/10/16 23:59 23:59 23:59 23:59 Intake Total 800 Output Total 2080 Balance -1280 - Objective General Appearance: positive: No acute distress Eyes Bilateral: positive: Normal inspection Abdomen: positive: Non-tender (Prevena wound vac in place and working well) Neurologic/Psychiatric: positive: Oriented x3 - Lab Results Fish Bones: 11/04/16 22:20 Assessment/Plan - Problem List (1) Delivered by section Impression: 31 yo S/p primary CD 11/06/2016, POD #4 Recovering well Routine care Anticipate removal of Prevena wound vac tomorrow Anticipate discharge to home 11/12/2016 (2) depression Impression: Controlled depression Trial of sertraline 50 mg 1 tab po daily tolerating well so far. No signs of worsening depression or anxiety Continue sertraline and increase as appropriate. Rx already faxed to [facility] in [place] Weekly F/u visits for depression
[2016-11-11] MEDS: ACETAMINOPHEN 500 MG TABLET PO SCH ×4 (04:18→21:26)
[2016-11-11] MEDS: SIMETHICONE CHEW 80 MG TABLET PO SCH ×5 (04:19→21:49)
--- NOTE | 2016-11-11 10:09 | PROVIDER PROGRESS NOTE ---
Subjective - Prog Note Date Prog Note Date: 11/11/16 Prog Note Time: 10:07 - Subjective Pt reports feeling: Improved Subjective: Patient sitting in bed. Elaine Hastings trying to wake up the baby for feeding. Laverne' s milk came in yesterday. Feels that she is coping better. No complaints of uncontrolled pain, vaginal bleeding, anxiety or depression. Ambulating and tolerating a regular diet. Still alright with going home tomorrow. Rxs Efax'd to [facility] in [place]. Handwritten copy of oxycodone available to her but she has not taking the medication in days. Current Medications - Current Medications Current Medications: Routine sertraline, Celebrex, Tylenol and colace. PRN oxycodone. Objective - Vital Signs/Intake & Output Reviewed Vital Signs: Yes Vital Signs: Vital Signs x48h Temp Pulse Resp BP Pulse Ox 11/11/16 09:34 99.0 F 81 12 119/60 99 - Objective General Appearance: positive: No acute distress Eyes Bilateral: positive: Normal inspection Abdomen: positive: Non-tender, Other (Prevena wound vac removed. Incision clean , dry and intact. No ecchymosis nor bullae.) - Lab Results Fish Bones: 11/04/16 22:20 Assessment/Plan - Problem List (1) Delivered by section Impression: 31 yo S/p primary CD 11/06/2016 Normal recovery. Continue ibuprofen and tylenol. May taper as appropriate. Routine care. Call for worsening fevers, chills, abdominal pain or vaginal bleeding. Incision check in 2 weeks and exam in 6 weeks. Discuss control at 6 week visit. Rx sent to [facility] in [place]. Anticipate discharge home tomorrow. Discharge summary dictated. Dr. Morales salesperson flying squad this weekend and will discharge her tomorrow. (2) depression Impression: depression better controlled. Will continue sertraline 50 mg 1 tab po daily. Increase to 100 mg as appropriate. Patient to follow up with me weekly to evaluate progress.
[2016-11-11] MEDS: CELECOXIB 100 MG CAPSULE PO SCH ×2 (10:48→21:27)
[2016-11-11] MEDS: DOCUSATE SODIUM 100 MG CAPSULE PO SCH ×2 (10:48→21:27)
[2016-11-11] MEDS: SERTRALINE 50 MG TABLET PO SCH (10:50)
[2016-11-12] MEDS: ACETAMINOPHEN 500 MG TABLET PO SCH (05:33)
[2016-11-12 08:01] VITALS: BP 113/56
[2016-11-12] MEDS: SERTRALINE 50 MG TABLET PO SCH (09:18)
[2016-11-12] MEDS: CELECOXIB 100 MG CAPSULE PO SCH (09:18)
[2016-11-12] MEDS: SIMETHICONE CHEW 80 MG TABLET PO SCH (09:18)
[2016-11-12] MEDS: DOCUSATE SODIUM 100 MG CAPSULE PO SCH (09:18)
--- NOTE | 2016-11-12 10:46 | Discharge Plan ---
Discharge Plan Disposition: 01 Home, Self Care Condition: Good Diet: Regular Activity Restrictions: Activity as Tolerated Shower Restrictions: No Driving Restrictions: No No Smoking: If you smoke, Please STOP! Call for help. Follow-up with: Debra Patrick DO [Provider Admit Priv/Credential] -
--- NOTE | 2016-11-12 20:15 | Labor Flowsheet ---
Labor Flowsheet Datetime Report Generated by CPN: 11/12/2016 20:09 Datetime: 11/12/2016 19:28 VITAL SIGNS NBP Sys/Marti/Mean (mmHg): 120 : 76 : 86 Pulse: 80 Datetime: 11/12/2016 17:55 SpO2 (%): 99 Datetime: 11/06/2016 03:02 Temperature (C): 36.9 Datetime: 11/06/2016 02:03 Respirations: 18 Temperature Route: Oral PAIN Pain Scale: 0 Datetime: 11/06/2016 00:30 Patient Position/Activity: Taken to OR in labor bed. Datetime: 11/06/2016 00:25 LaborFlag: Labor Datetime: 11/06/2016 00:20 UTERINE ACTIVITY Monitor Mode: External Frequency (min): 2-4 Quality: Moderate Duration (sec): 60-90 Pattern: Normal: <= 5 Contractions in 10 Minutes Resting Tone (Palpate): Relaxed ASSESSMENT A Monitor Mode: External US FHR Baseline Rate : 150 FHR Baseline Changes: No Baseline Change Variability: Moderate 6-25 bpm Accelerations: 15X15 Decelerations: None Datetime: 11/06/2016 00:10 Antiemetics/Antacids: Bicitra 30 ml PO Datetime: 11/06/2016 00:01 Epidural Procedure Other: Redose (Annotations: pt not getting much relief, bolus given by anesthesi a) Datetime: 11/05/2016 23:40 Patient Care Comments: consent obtained for c section Datetime: 11/05/2016 23:25 Pain Presence: Intermittent Pain Type: Contraction (Annotations: Pt feels epidural is not helping much) VAGINAL EXAM Dilatation (cm): 9.5 Exam by: Elin Caceres CNAnnette (Annotations: Per CNM, cervical swelling present.) Plan of Care: Plan of Care Discussed; Vaginal Delivery; C/S Delivery (Annotations: Pt requesting a csection, Dr. Patrick to see pt to discuss options/potential outcomes. Pt and SO given time together to discuss options.) Datetime: 11/05/2016 23:20 Contraction Comments: remains uncomfortable with contractions Category: Category II Datetime: 11/05/2016 23:02 Epidural Positioning: semifowlers Datetime: 11/05/2016 22:59 Epidural Procedure: Test Dose Datetime: 11/05/2016 22:51 ANESTHESIA Anesthesia Plans: Epidural Anesthesia Interview: I Anesthesia Comments: time out performed Datetime: 11/05/2016 22:35 Stage of : Labor Actions for Decelerations: Oxygen Applied; IV Bolus Pain Assessment Comments: Dr. Patrick discussing options with pt, pt. agreeable to epidural. Anesthe sergey contacted via phone. Datetime: 11/05/2016 22:15 Comments: fhr recovering 110 -120 Datetime: 11/05/2016 22:03 Vaginal Exam Comments: ant lip reduced Datetime: 11/05/2016 20:10 Pain Coping: Breathing Through Contractions Datetime: 11/05/2016 19:26 Effacement (%): 100 Station: 0 Vaginal Bleeding: Normal Show Datetime: 11/05/2016 19:24 Membrane Status: Ruptured Membranes Rupture Method: Artificial Amniotic Fluid Color: Clear Amniotic Fluid Amount: Small Datetime: 11/05/2016 19:10 COMMUNICATION Communication: Report Given to @ (Annotations: RN Bertha R. ) Datetime: 11/05/2016 18:48 Membrane Comments: Provider explains risks and benifits of ROM to patient related to arrest of labo r progress. Patient verbally agrees to AROM but requests her be present for procedure. Datetime: 11/05/2016 16:50 Comfort Measures: Hot Shower/Tub/Spa Datetime: 11/05/2016 16:44 Communication Comments: patient and support person oriented to birthing tub Datetime: 11/05/2016 16:33 Cervix, Consistency: Soft Cervix, Position: Midposition Datetime: 11/05/2016 16:26 I/O Interventions: Up to BR Datetime: 11/05/2016 15:59 PATIENT CARE Oxygen Method: Room Air Datetime: 11/05/2016 15:58 Monitor Interventions for UA: [place] Adjusted Datetime: 11/05/2016 13:34 MATERNAL ASSESSMENT Level of Consciousness: Fully Conscious Headache: Denies Nausea/Vomiting: Denies RUQ Epigastric Pain: Denies Datetime: 11/05/2016 09:06 Teaching Comments: Pt education given on nipple stimulation to help progress labor. Breast pump in structions given to pt and set up @BS. Pt starting BLT pumping. Breast pump kit given to pt. Datetime: 11/05/2016 07:00 Pain Location: Abdomen Breath Sounds, Left: Clear and Equal Breath Sounds, Right: Clear and Equal TEACHING Instructional Method: Patient Instructed; Family/Support Person Instructed Unit Routine: Monitoring Datetime: 11/05/2016 06:04 MEDICATIONS Pitocin (milliunits): Discontinued Cervical Ripening Agents: Perry Balloon Medication Comments: perry balloon fell out spontaneously
--- NOTE | 2016-11-13 07:36 | DISCHARGE SUMMARY ---
DATE OF ADMISSION: 11/06/2016 DATE OF DISCHARGE: DISCHARGE DIAGNOSES: 1. Induction of labor for intrauterine growth restriction. 2. Category 3 tracing. 3. Failure to progress. PROCEDURE: Primary lower segment transverse section (Dr. Patrick). HISTORY: The patient is a 31-year-old female, 2, para 0, at 38 weeks and 5 days of gestation, who [facility] There was lagging fundal height, and growth ultrasound documented the fetus at the 7.5 percentile, consistent with IUGR. Reference admissi on history by Paulo Caceres. Baseline cervical exam was 2 cm, 80%, and -2 station. A cervical bal loon was placed for ripening. HOSPITAL COURSE: After cervical ripening, the patient developed spontaneous contractions. As labor pr ogressed, category 2 decelerations developed, and Dr. Patrick was called in for consultation. An epidur al was placed and terbutaline given. The patient's heart tracing further deteriorated with time and there was no descent, prompting delivery. Reference Dr. Patrick's note. Uneventful eduin an section was accomplished to yield a living female , weighing 6 pounds 6.8 ounces and scoring Apgars of 9 and 10. Reference operative note. There were no complications, and the total blood loss was 800. Postoperatively, the patient recovered well except for difficulty with mood. Sertraline 50 m g was begun. Postoperative hemoglobin was 11.8. The patient had several days of intensive nursing sup port and education. She demonstrated good technique. Pain control was adequate with Minnie ebrex, Tylenol, and oxycodone. On the 12 of November, the patient was ready for discharge. She had fa noa members from out of [place] coming to help. She reported improved mood. We discussed in detail pos tpartum dysphoria and depression. The patient denied any suicidal or violent ideation. We also review ed warning signs and call-back instructions. FOLLOWUP: In [address] Patrick for a wound check and general well-being check. DISCHARGE MEDICATIONS: 1. Celebrex. 2. Tylenol. 3. Colace. 4. Oxycodone. JOB #: [id number] EXT JOB #:[id number]
--- NOTE | 2016-11-13 11:08 | DISCHARGE SUMMARY ---
DATE OF ADMISSION: 11/06/2016 DATE OF DISCHARGE: 11/12/2016 DIAGNOSES ON ADMISSION 1. A 31-year-old G2, P0-0-1-0 with a 38-week 5-day intrauterine . 2. Intrauterine growth restriction. 3. Cervix remote from delivery. DIAGNOSES ON DISCHARGE 1. A 31-year-old G2, P1-0-1-1 status post primary delivery on 11/06/2016. 2. Normal obstetrical recovery. 3. Improved depression. BRIEF HISTORY: This is a patient of [facility], who was seen and found to be size le ss than dates. She had an ultrasound on 11/03/2016, which revealed a single viable intrauterine pregn jen in a cephalic presentation with BAYLEE of 8.9 cm. Estimated weight, however, was remarkable a t 2617 grams or the 7th percentile. The cervix was long and closed with a transabdominal length of 3. 1 cm. Given the suspicion of intrauterine growth restriction, as well as the baby being term, i t was indicated for patient to undergo an induction of labor. Patient was admitted to the hospital ere she was given a transcervical balloon for cervical ripening. She spontaneously progressed to 7 cm dilation, 70% effacement and -2 station. There was a late deceleration with the heart tones going do wn to the 40s. I recommended the patient to undergo a primary delivery secondary to nonreass uring heart tones, as well as failure to dilate and descend. The patient underwent a primary ce sarean delivery on 11/06/2016 and delivered a viable female infant named Iesha. Apgars 9 and 10 at one and five minutes, respectively. The baby weighed 6 pounds 6.8 ounces. Estimated blood loss was 80 0 mL, and there were no complications. Postoperatively, though patient was recovering well physically, she developed significant anxiety and depression beginning on postop day #1. Due to the patient's exhaustion as well as poor co ping mechanisms, the patient was observed to yell and shake the baby by the nurse. The baby was watc hed by the nurses and patient and her Venkata were allowed to sleep. The patient, Venkata, and the ba by were then watched carefully and a more routine schedule where the baby would breast feed and patie nt and the baby would sleep was established. In addition, sertraline 50 mg 1 tab p.o. daily was start ed. After getting supportive care from the technical staff engineer, patient has been able to cope much better with b reastfeeding the baby, as well as taking care of herself. The patient's [id number] is anticipated to come and help them on 11/12/2016. We anticipate to discharge the patient home on 11/12/2016 when p atient will become more confident of taking care of herself and the baby, as well as getting more hel p at home. I felt that patient's situation was not an acute event of psychosis, but more of the patie nt being too tired and the reality of parenthood and her idea of parenthood being unrealistic. The patient will be discharged home on 11/12/2016. Prescriptions for sertraline, Tylenol, ibuprofen, and Colace have already been faxed to her pharmacy. A hand written prescription for oxycodone will be available for the patient should she have any breakthrough pain. Anticipate removing her Prevena wou nd VAC on 11/11/2016. The patient is to see me at [facility] in a week for routine in cision check and then weekly for followup of her depression and anxiety. Finally, patient would be seen for a 6-week examination where we will initiate contraception at that time. The patient is to call should she have any worsening fevers, chills, abdominal pain, or vaginal bleed ing. JOB #: [id number] EXT JOB #:[id number]
== END 2016-11-12 11:30 | disposition home or self-care (01) | DRG 766 ==
LOC: WFO 16:03 → FBP 16:05 → WFO 18:02 → FBP 18:03 → UNDOADMOB 18:03 → OBSVTOIN 11-05 13:00 → INTOOBSV 11-05 13:00 → FBP 11-06 02:45 → EEVIPCON 11-06 02:45 → UNDOADMOB 11-06 02:45 → OBSVTOIN 11-06 02:45 → UNDODISIN 11-12 11:30
PROVIDERS: ADMIT Obstetrics & Gynecology; ATTEND Obstetrics & Gynecology
PROC: 10D00Z1 Extraction of Products of Conception, Low, Open Approach (ICD-10-PCS; principal; 2016-11-06 00:21)
DX: O36.5930 Maternal care for other known or suspected poor fetal growth, third trimester, not applicable or unspecified (principal); O76 Abnormality in fetal heart rate and rhythm complicating labor and delivery; O64.8XX0 Obstructed labor due to other malposition and malpresentation, not applicable or unspecified; O62.0 Primary inadequate contractions; F53 Mental and behavioral disorders associated with the puerperium, not elsewhere classified; O99.345 Other mental disorders complicating the puerperium; F41.9 Anxiety disorder, unspecified; Z3A.38 38 weeks gestation of pregnancy; Z37.0 Single live birth
CPT/HCPCS: 59200; 85025; 88307

== ENCOUNTER 2017-12-08 11:12 | Outpatient (CLI) | payer OTHER ==
[2017-12-08 11:29] LABS: BASOPHILS % (AUTO) 0.5 %; EOSINOPHILS # (AUTO) 0.1 10^3/uL (0.0-0.7); EOSINOPHILS % (AUTO) 1.2 %; HGB - HEMOGLOBIN 13.5 g/dL (12.0-16.0); LYMPHOCYTES # (AUTO) 1.5 10^3/uL (1.5-3.5); LYMPHOCYTES % (AUTO) 21.5 %; MEAN CORPUSCULAR HGB CONC 34.9 g/dL (32.0-36.0); MEAN CORPUSCULAR VOLUME 91.8 fL (81.0-99.0); MEAN PLATELET VOLUME 7.6 fL (7.9-10.8); MONOCYTES # (AUTO) 0.7 10^3/uL (0.0-1.0); MONOCYTES % (AUTO) 9.5 %; NEUTROPHILS # (AUTO) 4.7 10^3/uL (1.5-6.6); NEUTROPHILS % (AUTO) 67.3 %; PLT - PLATELET COUNT 291 10^3/uL (130-450); RED BLOOD COUNT 4.22 10^6/uL (4.20-5.40); RED CELL DISTRIBUTION WIDTH 12.8 % (12.0-15.0)
[2017-12-08 12:06] LABS: THYROID STIMULATING HORMONE 0.98 uIU/mL (0.34-5.60)
[2017-12-08 12:12] LABS: FERRITIN 30.4 ng/mL (11.0-306.8)
== END 2017-12-08 11:13 | disposition home or self-care (01) ==
LOC: LAB 11:12
PROVIDERS: ATTEND Registered Nurse
DX: R53.83 Other fatigue (principal)
CPT/HCPCS: 36415; 82306; 82607; 82728; 84443; 85025